=== PATIENT | female | born 1985 | race Caucasian/White ===

== ENCOUNTER 2022-02-20 13:51 | Emergency (ER) | payer OTHER, SELFPAY ==
[2022-02-20 14:38] LABS: Urine Blood Negative (Negative); Urine Glucose Negative (Negative); Urine Protein Negative (Negative); Urine pH 6.5 (5.0-7.0)
--- NOTE | 2022-02-20 14:39 | RAD REPORT ---
EXAM DESCRIPTION: RAD - Chest Single View - 02/20/2022 2:31 pm CLINICAL HISTORY: CHEST PAIN Chest pain. COMPARISON: No comparisons FINDINGS: Portable technique limits examination quality. The lungs are grossly clear. The heart is normal in size. No displaced fractures. IMPRESSION: No acute intrathoracic process suspected.
[2022-02-20 15:56] LABS: Absolute Lymphocytes (CBC) 1.7 K/uL (0.7-4.9); Hematocrit 31.3 % (36.0-45.0); Lymphocytes % 29.2 % (15.3-44.8); MCV 62.5 fL (80-100); RBC Red Blood Cell Count 5.01 M/uL (3.86-4.86)
[2022-02-20 16:11] LABS: BUN Blood Urea Nitrogen 16 mg/dL (7-18); Bicarbonate 29 mmol/L (21-32); Glomerular Filtration Rate 108 ml/min (=/>90); Glucose Level 110 mg/dL (74-106); Potassium 4.4 mmol/L (3.5-5.1); Sodium Level 137 mmol/L (136-145)
[2022-02-20 16:14] LABS: Troponin High Sensitivity < 3.0 pg/mL (<58.9)
[2022-02-20] MEDS ORDERED: NA CHLORIDE 0.9% 500 ML ONE (16:21)
--- NOTE | 2022-02-20 17:09 | ER ---
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 Coronavirus screen: Client denies travel out of the [place] in the last 14 days. At this time, the client does not indicate any symptoms associated with coronavirus-19. Ebola Screen: Patient negative for fever greater than or equal to 101.5 degrees Fahrenheit, and additional compatible Ebola Virus Disease symptoms Patient denies exposure to infectious person. Patient denies travel to an Ebola-affected area in the 21 days before illness onset. No symptoms or risks identified at this time. Initial Sepsis Screen: Does the patient meet any 2 criteria? No. Patient's initial sepsis screen is negative. Does the patient have a suspected source of infection? No. Patient's initial sepsis screen is negative. Risk Assessment: Do you want to hurt yourself or someone else? Patient reports no desire to harm self or others. Onset of symptoms was February 20, 2022. Transition of care: patient was received from another setting of care (ambulatory primary care physician practice). 14:08 Method Of Arrival: Ambulatory ph 14:21 Acuity: WESLEY 3 ph Triage Assessment: 14:10 General: Appears in no apparent distress. Behavior is calm, cooperative, appropriate ph for age. Pain: Denies pain. Cardiovascular: No deficits noted. 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 - Social history:: Smoking status: Patient denies any tobacco usage or history of. Screenin:37 Abuse screen: Denies threats or abuse. Nutritional screening: No deficits noted. ll1 Tuberculosis screening: No symptoms or risk factors identified. 17:32 Fall Risk IV access (20 points). Total Baird Fall Scale indicates No Risk (0-24 pts). ll1 Assessment: 15:25 Reassessment: No changes from previously documented assessment. Patient and/or family ll1 updated on plan of care and expected duration. Pain level reassessed. Patient is alert, oriented x 3, equal unlabored respirations, skin warm/dry/pink. 17:33 Pain: Pain does not radiate. Pain began 1 day ago. ll1 Vital Signs: 14:10 BP 134 / 76; Pulse 103; Resp 16; Temp 98.6; Pulse Ox 100% ; Weight 77.56 kg; Height 5 ph ft. 8 in. (172.72 cm); Pain 0/10; 15:45 BP 120 / 75; Pulse 86; Pulse Ox 100% on R/A; ll1 16:45 BP 119 / 70; Pulse 75; Resp 16; Pulse Ox 100% on R/A; ll1 17:29 BP 111 / 70; Pulse 87; Resp 17; ll1 14:10 Body Mass Index 26.00 (77.56 kg, 172.72 cm) ph ED Course: 13:52 Patient arrived in ED. rg4 14:00 Geoffrey Bell is PHCP. jl9 14:00 Efra Landa DO is Attending Physician. jl9 14:14 Arm band placed on right wrist. Patient notified of wait time. ph 14:20 Patient placed in waiting room. ph 14:20 SARS-COV-2 RT PCR (Document "Date of Onset" if Symptomatic) Sent. ph 14:22 Triage completed. ph 14:30 XRAY Chest (1 view) In Process Unspecified. EDMS 15:26 Patient placed in an exam room, on a stretcher. ll1 15:30 Diane Eldridge, RN is Primary Nurse. ll1 15:38 Patient has correct armband on for positive identification. Bed in low position. Call ll1 light in reach. Side rails up X 1. Client placed on continuous cardiac and pulse oximetry monitoring. NIBP monitoring applied. manager monitoring on. 15:38 No provider procedures requiring assistance completed. Inserted saline lock: 22 gauge ll1 in left antecubital area, using aseptic technique. Blood collected. Patient maintains SpO2 saturation greater than 95% on room air. 15:43 PHCP role handed off by Geoffrey Bell cp 15:43 Alfonso Baxter PA is PHCP. cp 17:32 IV discontinued, intact, bleeding controlled, No redness/swelling at site. Pressure ll1 dressing applied. Administered Medications: 16:24 Drug: NS 0.9% 500 ml Route: IV; Rate: bolus; Site: left antecubital; ll1 17:00 Follow up: Response: No adverse reaction; IV Status: Completed infusion; IV Intake: ll1 500ml Medication: 15:38 VIS not applicable for this client. ll1 Intake: 17:00 IV: 500ml; Total: 500ml. 1 Outcome: 17:08 Discharge ordered by MD. cp 17:32 Discharged to home ambulatory. ll1 17:32 Condition: stable 17:32 Discharge instructions given to patient, family, Instructed on discharge instructions, follow up and referral plans. Demonstrated understanding of instructions, follow-up care. 17:34 Patient left the ED. 1 Signatures: Dispatcher [employer] EDKarla Solitario RN RN Alfonso Randhawa PA PA cp Garcia, Rubi rg4 Diane Eldirdge RN RN [facility] Geoffrey Bell jl9
--- NOTE | 2022-02-20 17:09 | EDPHYS ---
Physician Documentation [facility] Name: Barb Hednerson Age: 36 yrs Sex: Female : 1985 Arrival Date: 02/20/2022 Time: 13:52 Bed 14 Private MD: ED Physician Efra Landa HPI: 02/20 14:38 This 36 yrs old Female presents to ER via Ambulatory with complaints of jl9 intermittent Palpitations, Chest Pain, Weakness. Patient reports that she is anemic. . 14:38 The patient presents with a history of heart racing. Context: The symptoms occur jl9 without known cause. Onset: The symptoms/episode began/occurred 1 month(s) ago. Duration: The patient or guardian reports multiple episodes. Modifying factors: The symptoms are aggravated by nothing. The symptoms are alleviated by nothing. Associated signs and symptoms: Pertinent negatives: lightheadedness, SOB, syncope. 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 - Social history:: Smoking status: Patient denies any tobacco usage or history of. ROS: 14:40 Constitutional: Negative for fever, chills, and weight loss, Eyes: Negative for injury, jl9 pain, redness, and discharge, ENT: Negative for injury, pain, and discharge, Neck: Negative for injury, pain, and swelling. 14:40 Respiratory: Negative for shortness of breath, cough, wheezing, and pleuritic chest pain, Abdomen/GI: Negative for abdominal pain, nausea, vomiting, diarrhea, and constipation, Back: Negative for injury and pain, : Negative for injury, bleeding, discharge, and swelling, MS/Extremity: Negative for injury and deformity, Skin: Negative for injury, rash, and discoloration. 14:40 Psych: Negative for depression, anxiety, suicide ideation, homicidal ideation, and hallucinations, Allergy/Immunology: Negative for hives, rash, and allergies, Endocrine: Negative for neck swelling, polydipsia, polyuria, polyphagia, and marked weight changes, Hematologic/Lymphatic: Negative for swollen nodes, abnormal bleeding, and unusual bruising. 14:40 Cardiovascular: Positive for palpitations. 14:40 Neuro: Positive for weakness. Exam: 14:40 Constitutional: This is a well developed, well nourished patient who is awake, alert, jl9 and in no acute distress. Head/Face: Normocephalic, atraumatic. Eyes: Pupils equal round and reactive to light, extra-ocular motions intact. Lids and lashes normal. Conjunctiva and sclera are non-icteric and not injected. Cornea within normal limits. Periorbital areas with no swelling, redness, or edema. ENT: Mucous membranes moist. Neck: Trachea midline, no thyromegaly or masses palpated, and no cervical lymphadenopathy. Supple, full range of motion without nuchal rigidity, or vertebral point tenderness. No Meningismus. Chest/axilla: Normal chest wall appearance and motion. Nontender with no deformity. No lesions are appreciated. Cardiovascular: Regular rate and rhythm with a normal S1 and S2. No gallops, murmurs, or rubs. Normal PMI, no JVD. No pulse deficits. Respiratory: Lungs have equal breath sounds bilaterally, clear to auscultation and percussion. No rales, rhonchi or wheezes noted. No increased work of breathing, no retractions or nasal flaring. Abdomen/GI: Soft, non-tender, with normal bowel sounds. No distension or tympany. No guarding or rebound. No evidence of tenderness throughout. Back: No spinal tenderness. No costovertebral tenderness. Full range of motion. Pelvic Exam: Normal external genitalia. Speculum exam with closed cervical os, no discharge or bleeding noted. Bimanual exam with normal adnexa, no adnexal or cervical motion tenderness. Normal uterus. Skin: Warm, dry with normal turgor. Normal color with no rashes, no lesions, and no evidence of cellulitis. MS/ Extremity: Pulses equal, no cyanosis. Neurovascular intact. Full, normal range of motion. Neuro: Awake and alert, GCS 15, oriented to person, place, time, and situation. Cranial nerves II-XII grossly intact. Motor strength 5/5 in all extremities. Sensory grossly intact. Cerebellar exam normal. Normal gait. Psych: Awake, alert, with orientation to person, place and time. Behavior, mood, and affect are within normal limits. 15:50 ECG was reviewed by the Attending Physician. cp Vital Signs: 14:10 BP 134 / 76; Pulse 103; Resp 16; Temp 98.6; Pulse Ox 100% ; Weight 77.56 kg; Height 5 ph ft. 8 in. (172.72 cm); Pain 0/10; 15:45 BP 120 / 75; Pulse 86; Pulse Ox 100% on R/A; ll1 16:45 BP 119 / 70; Pulse 75; Resp 16; Pulse Ox 100% on R/A; ll1 17:29 BP 111 / 70; Pulse 87; Resp 17; ll1 14:10 Body Mass Index 26.00 (77.56 kg, 172.72 cm) ph MDM: 14:40 Data reviewed: vital signs, nurses notes. jl9 14:44 Patient medically screened. jl 15:41 Test interpretation: by ED physician or midlevel provider: ECG, NSR 81bpm. jl9 17:06 Counseling: I had a detailed discussion with the patient and/or guardian regarding: the cp historical points, exam findings, and any diagnostic results supporting the discharge/admit diagnosis, lab results, radiology results, the need for outpatient follow up, a human resources technician, a family practitioner, to return to the emergency department if symptoms worsen or persist or if there are any questions or concerns that arise at home. 02/20 14:00 Order name: Basic Metabolic Panel; Complete Time: 16:31 [facility] 02/20 16:31 Interpretation: Normal except: GLUC 110. cp 02/20 14:00 Order name: CBC with Diff; Complete Time: 16:04 [facility] 02/20 16:05 Interpretation: Normal except: HGB 9.5; HCT 31.3; MCV 62.5; MCH 19.0; MCHC 30.4; RDW cp 19.8. 02/20 14:00 Order name: Troponin HS; Complete Time: 16:31 [facility] 02/20 16:32 Interpretation: Reviewed. 02/20 14:13 Order name: SARS-COV-2 RT PCR (Document "Date of Onset" if Symptomatic); Complete Time: 16:04 02/20 14:39 Order name: Urine Dipstick-Ancillary; Complete Time: 14:43 EDMS 02/20 14:51 Order name: Urine --Ancillary (enter results); Complete Time: 15:07 3 02/20 14:00 Order name: XRAY Chest (1 view); Complete Time: 14:43 [facility] 02/20 17:06 Interpretation: Report review. 02/20 14:00 Order name: EKG; Complete Time: 14:01 [facility] 02/20 14:00 Order name: Cardiac monitoring; Complete Time: 15:37 [facility] 02/20 14:00 Order name: EKG - Nurse/Tech; Complete Time: 15:37 [facility] 02/20 14:00 Order name: IV Saline Lock; Complete Time: 15:30 [facility] 02/20 14:00 Order name: Labs collected and sent; Complete Time: 15:30 [facility] 02/20 16:06 Order name: D-Dimer; Complete Time: 16:34 02/20 16:34 Interpretation: Reviewed. 02/20 14:00 Order name: O2 Per Protocol; Complete Time: 15:30 [facility] 02/20 14:00 Order name: O2 Sat Monitoring; Complete Time: 15:30 [facility] 02/20 14:13 Order name: Urine Dipstick-Ancillary (obtain specimen); Complete Time: 14:29 [facility] EC:50 Rate is 81 beats/min. Rhythm is regular. [place] interval is normal. QRS interval is normal. cp QT interval is normal. T waves are Inverted in leads aVF, aVR. Interpreted by me. Reviewed by me. Administered Medications: 16:24 Drug: NS 0.9% 500 ml Route: IV; Rate: bolus; Site: left antecubital; ll1 17:00 Follow up: Response: No adverse reaction; IV Status: Completed infusion; IV Intake: ll1 500ml Disposition: 19:50 Co-signature as Attending Physician, Efra STUBBS was immediately available on-site ms3 in the Emergency Department for consultation in the care of the patient. . Disposition Summary: 02/20/22 17:08 Discharge Ordered Location: Home cp Problem: new cp Symptoms: have improved cp Condition: Stable cp Diagnosis - Chest pain, unspecified cp - Palpitations cp - Iron deficiency anemia, unspecified cp Followup: cp - With: Private Physician - When: 2 - 3 days - Reason: Recheck today's complaints Discharge Instructions: - Discharge Summary Sheet cp - Anemia cp - Nonspecific Chest Pain, Adult cp - Iron-Rich Diet cp - Palpitations cp - Aspirin and Your Heart cp - Ambulatory Cardiac Monitoring cp Forms: - Medication Reconciliation Form cp - Thank You Letter cp - Antibiotic Education cp - Prescription Opioid Use cp - Work release form [facility] Signatures: Dispatcher [employer] Karla Shukla RN RN james Baxter, GARY Hamilton cp, Lynsay, RN RN ll1 Efra Landa, DO WANG ms3 Geoffrey Bell jl9
[2022-02-20 18:01] VITALS: TEMP 98.6; O2SAT 100
[2022-02-20 18:23] VITALS: BP 111/70
--- NOTE | 2022-02-21 07:20 | EKG ---
Test Date: 2022-02-20 Test Time: 15:41:44 Metal Engraver: CLAUDE MEASUREMENT RESULTS: Intervals: Rate: 81 CO: 144 QRSD: 80 QT: 390 QTc: 453 [place]: P: 40 CO: 144 QRS: 46 T: 54 INTERPRETIVE STATEMENTS: Normal sinus rhythm Normal ECG Compared to ECG 01/19/2016 15:15:24 No significant changes Electronically Signed On 02-21-22 07:18:29 CDT by Steve Ricketts
== END 2022-02-20 17:34 | disposition home or self-care (01) ==
LOC: ER 13:51
DX: D50.9 Iron deficiency anemia, unspecified (principal); R00.2 Palpitations; Z20.822 Contact with and (suspected) exposure to COVID-19; Z88.1 Allergy status to other antibiotic agents
CPT/HCPCS: 36415; 71045; 80048; 81003; 81025; 84484; 85025; 85379; 93005; 96360; 99285; J7040; U0003